=== PATIENT | female | born 1995 | race African-American/Black ===

== ENCOUNTER 2021-09-23 11:18 | Day surgery (SDC) | payer MEDICAID ==
[2021-09-22 11:49] LABS: COVID AG,FIA SOURCE NASAL SWAB
[~2021-09-23] VITALS: Ht 152.4 cm; Wt 53.1 kg
[~2021-09-23 11:18] MED LIST: SODIUM CHLORIDE 0.9% 1,000 ML IV ONE; SODIUM CHLORIDE 0.9% 1,000 ML ONE
[2021-09-23] MEDS ORDERED: LIDOCAINE/PF 2% 5 ML VIAL IM ONE (12:00)
[2021-09-23] MEDS ORDERED: PROPOFOL 1% 20 ML VIAL IVP ONE (12:00)
== END 2021-09-23 14:50 | disposition home or self-care (01) ==
LOC: SURGERY 11:18
PROVIDERS: ATTEND Internal Medicine Gastroenterology
DX: K29.50 Unspecified chronic gastritis without bleeding (principal); B96.81 Helicobacter pylori [H. pylori] as the cause of diseases classified elsewhere; K21.9 Gastro-esophageal reflux disease without esophagitis; Z88.8 Allergy status to other drugs, medicaments and biological substances; Z98.890 Other specified postprocedural states; Z79.899 Other long term (current) drug therapy; G89.29 Other chronic pain
CPT/HCPCS: 43239; 84703; 87426; C9803; J2704; J3490; J7030; 88305; 88312; 88313

== ENCOUNTER 2022-08-24 17:31 | Inpatient (IN) | payer MEDICAID, OTHER ==
[~2022-08-24] VITALS: Ht 170.2 cm; Wt 68.2 kg
[2022-08-24 18:26] LABS: EOSINOPHILS % (AUTO) 0.6 % (1.0-6.0); HEMATOCRIT 40.8 % (36-46); HEMOGLOBIN 13.5 g/dL (12.0-16.0); LYMPHOCYTES % (AUTO) 30.1 % (22.0-44.0); MEAN CORPUSCULAR HEMOGLOBIN 30.8 pg (26.0-34.0); MEAN CORPUSCULAR VOLUME 94 fL (80-100); MONOCYTES # (AUTO) 0.2 K/uL (0.1-1.0); NEUTROPHILS # (AUTO) 4.3 K/uL (1.8-7.7); NEUTROPHILS % (AUTO) 65.3 % (40.0-70.0); PLATELET COUNT (AUTO) 306 K/uL (150-450); RED BLOOD CELL COUNT(AUTO) 4.36 MIL/uL (4.00-5.20); RED CELL DISTRIBUTION WIDTH 13.4 % (11.5-14.5)
[2022-08-24 18:33] LABS: ANION GAP 15 mmol/L (8-16); CALCIUM, TOTAL 9.1 mg/dL (8.8-10.5); CARBON DIOXIDE 23 mmol/L (22-29); CHLORIDE 108 mmol/L (98-107); CREATININE 0.62 mg/dL (0.60-1.30); GLOMERULAR FILTR. RATE CALC > 60 mL/min (>60); GLUCOSE,RANDOM 76 mg/dL (70-110); POTASSIUM 3.4 mmol/L (3.5-5.1); SODIUM SERUM 146 mmol/L (136-145); UREA NITROGEN, BLOOD 11 mg/dL (7-18)
[2022-08-24 18:39] LABS: ALANINE AMINOTRANSFERASE 26 U/L (12-78); ALBUMIN 4.2 g/dL (3.4-5.0); ALKALINE PHOSPHATASE 53 U/L (46-116); ASPARTATE AMINOTRANSFERASE 18 U/L (15-37); BILIRUBIN,TOTAL 0.2 mg/dL (0.1-1.0); TOTAL PROTEIN, SERUM 7.6 g/dL (6.4-8.2)
[2022-08-24] MEDS ORDERED: HALOPERIDOL LACTATE 5 MG/ML VIAL IM ONE (19:45)
[2022-08-24] MEDS ORDERED: LORazepam 2 MG/ML VIAL IM ONE ×2 (19:45→20:00)
[2022-08-24] MEDS ORDERED: DiphenhydrAMINE HCL 50 MG/ML VIAL IM ONE ×2 (19:45→20:00)
[2022-08-24 20:01] LABS: HCG,QUANTITATIVE < 1 mIU/mL (0-6)
[2022-08-24 20:36] LABS: COVID AG,FIA SOURCE NASOPHARYNGEAL
[2022-08-24] MEDS ORDERED: LORazepam 2 MG TABLET PO PRN (21:15)
[2022-08-24] MEDS ORDERED: ZOLPIDEM TARTRATE 10 MG TABLET PO PRN (21:15)
[2022-08-24] MEDS ORDERED: HALOPERIDOL 5 MG TABLET PO PRN (21:15)
[2022-08-25 00:08] VITALS: BP 98/64
[2022-08-25 00:35] VITALS: BP 96/64
[2022-08-25] MEDS ORDERED: BENZOCAINE/MENTHOL LOZENGE PO PRN (09:45)
[2022-08-25] MEDS ORDERED: OMEPRAZOLE 20 MG CAPSULE PO PRN (09:45)
[2022-08-25] MEDS ORDERED: MAG HYDROX/AL HYDROX/SIMETH ES 30 ML SUSPENSION UDCUP PO PRN (09:45)
[2022-08-25] MEDS ORDERED: POTASSIUM CHLORIDE 20 MEQ ER TABLET PO ONE (09:45)
[2022-08-25] MEDS ORDERED: ONDANSETRON HCL 4 MG TABLET PO PRN (09:45)
[2022-08-25] MEDS ORDERED: LOPERAMIDE HCL 2 MG CAPSULE PO PRN (09:45)
[2022-08-25] MEDS ORDERED: DOCUSATE SODIUM 100 MG CAPSULE PO PRN (09:45)
[2022-08-25] MEDS ORDERED: BACITRACIN 28 GM OINTMENT TP PRN (09:45)
[2022-08-25] MEDS ORDERED: MAGNESIUM HYDROXIDE SUSPENSION 30 ML UDCUP PO PRN (09:45)
[2022-08-25] MEDS ORDERED: PETROLATUM,WHITE 28 GM JELLY TP PRN (09:45)
[2022-08-25] MEDS ORDERED: IBUPROFEN 600 MG TABLET PO PRN (09:45)
[2022-08-25] MEDS ORDERED: ALBUTEROL SULFATE HFA 90 MCG/PUFF 8 GM INHALER IH PRN (09:45)
[2022-08-25] MEDS ORDERED: CloNIDine HCL 0.1 MG TABLET PO PRN (09:45)
[2022-08-25] MEDS ORDERED: ACETAMINOPHEN 325 MG TABLET PO PRN (09:45)
[2022-08-25 10:36] VITALS: BP 133/88
[2022-08-25 20:05] VITALS: BP 116/55
[2022-08-26 08:30] LABS: POTASSIUM 4.4 mmol/L (3.5-5.1)
[2022-08-26 08:41] VITALS: BP 132/78
[2022-08-26] MEDS ORDERED: DIVA-112 PO (10:26)
== END 2022-08-26 14:30 | disposition home or self-care (01) | DRG 753 ==
LOC: EMS 17:52 → UNDOADMIN 08-25 00:01 → 3EC 08-25 00:01 → 3EI 08-25 00:01
PROVIDERS: ADMIT Psychiatry & Neurology Psychiatry; ATTEND Psychiatry & Neurology Psychiatry
DX: F31.9 Bipolar disorder, unspecified (principal); E87.0 Hyperosmolality and hypernatremia; F10.129 Alcohol abuse with intoxication, unspecified; F20.9 Schizophrenia, unspecified; Y90.9 Presence of alcohol in blood, level not specified; Z20.822 Contact with and (suspected) exposure to COVID-19; F41.9 Anxiety disorder, unspecified; E87.6 Hypokalemia; G47.00 Insomnia, unspecified; K59.00 Constipation, unspecified
CPT/HCPCS: 80053; 84132; 84295; 84702; 84703; 85025; 99291; G0480; J1200; J1630; J2060